=== PATIENT | female | born 1955 | race African-American/Black ===

== ENCOUNTER 2016-09-13 10:30 | Outpatient (RCR) | payer OTHER | END 2016-10-25 08:15 | disposition still patient (30) | LOC: WSOT 10:30 | DX: M77.11 Lateral epicondylitis, right elbow (principal) ==

== ENCOUNTER → 2017-06-19 | Outpatient (CLI) | payer OTHER | LOC: MC.RAD 08:40 | DX: Z12.31 Encounter for screening mammogram for malignant neoplasm of breast (principal) ==

== ENCOUNTER → 2018-06-20 | Outpatient (CLI) | payer BC ==
[~2018-06-20] MED LIST: ACTIVELLA TABLE1 TAB PO; LOPREEZA1 TAB PO; PROTONIX 40MG T40 MG PO
== END ==
LOC: MC.RAD 12:50
DX: Z12.31 Encounter for screening mammogram for malignant neoplasm of breast (principal)

== ENCOUNTER 2019-02-27 09:44 | Observation (INO) | payer MEDICARE, OTHER ==
[~2019-02-27] VITALS: Ht 170.2 cm; Wt 66.5 kg
[2019-02-27] MEDS ORDERED: ESTRACE 1MG1 MG/TAB PO (10:01)
[2019-02-27] MEDS ORDERED: MOBIC15 MG PO (10:02)
[2019-02-27 10:35] LABS: BASO % 0.3 % (0.0-2.0); EOS # 0.2 (0.0-0.7); EOS % 1.4 % (0-4.0); GRAN # 8.4 (1.4-6.5); GRAN % 79.2 % (42.2-75.2); HEMATOCRIT 41.8 % (37.0-47.0); HEMOGLOBIN 13.1 g/dl (12.5-16.0); LYMPH # 1.2 (1.2-3.4); LYMPH % 11.7 % (20.0-51.0); MEAN CELL VOLUME 78 fl (80.0-100.0); MEAN CORPUSCULAR HEMOGLOBIN 25 pg (27.0-31.0); MEAN CORPUSCULAR HGB CONC 31 g/dl (33.0-37.0); MEAN PLATELET VOLUME 10.1 fl (7.4-10.4); MONO # 0.8 (0.1-0.6); MONO % 7.1 % (1.7-9.3); PLATELET COUNT 230 K/mm3 (130-400); RED BLOOD COUNT 5.33 M/mm3 (4.10-5.30); REDCELL DISTRIBUTION WIDTH-CV 13.7 % (11.5-14.5)
[2019-02-27 10:45] LABS: ALBUMIN 4.5 gm/dL (3.5-5.0); BILIRUBIN,TOTAL 2.1 mg/dL (0.0-1.0); CALCIUM 10.1 mg/dL (8.4-10.2); CREATININE, serum 0.93 (0.52-1.25); POTASSIUM 3.9 mmol/L (3.4-5.0); TOTAL PROTEIN 8.1 gm/dL (6.4-8.2)
[2019-02-27 10:51] LABS: COLLECTION METHOD CLEAN CATCH
[2019-02-27 11:04] LABS: MUCOUS Present /lpf; PH 5 (5-8); URINE APPEARANCE Hazy; URINE BACTERIA Rare /hpf; URINE BILIRUBIN Negative (NEGATIVE); URINE BLOOD 2+ (NEGATIVE); URINE COLOR Yellow; URINE GLUCOSE Negative (NEGATIVE); URINE KETONE Trace (NEGATIVE); URINE LEUKOCYTE ESTERASE Negative (NEGATIVE); URINE NITRATE Negative (NEGATIVE); URINE PROTEIN(semi-quant) 1+ (NEGATIVE); URINE UROBILINOGEN Negative (NEGATIVE)
--- NOTE | 2019-02-27 13:38 | NUR ---
RECEIVED REPORT FROM YEN MEDRANO FROM THE ED.PATIENT TO BE TRANSPORTED TO ROOM 308.
--- NOTE | 2019-02-27 13:57 | NUR ---
pt arrived to room 308 at this time.awake,a/ox3.oriented to room.denies any needs at this time.will continue to monitor.call light in reach
[2019-02-27 14:07] VITALS: BP 147/71; PULSE 62; TEMP 98.1
--- NOTE | 2019-02-27 15:00 | NUR ---
ASSESSMENT COMPLETE.PATIENT A/OX3.REPORTS MINIMAL TO NO PAIN TO ABD.DESCRIBES CRAMPING.BREATHING EVEN AND UNLABORED.LSCTA.BREATHING EVEN AND UNLABORED.INSTRUMENTATION AND CONTROL TECHNICIAN EQUAL.PT AMBULATORY.DENIES ANY BRIGHT RED BLOOD AT THIS TIME.NO OTHER NEEDS VOICED.WILL CONTINUE TO MONITOR.CALL LIGHT IN REACH
[2019-02-27 16:21] LABS: HEMATOCRIT 37.9 % (37.0-47.0); HEMOGLOBIN 11.9 g/dl (12.5-16.0)
[2019-02-27 16:24] VITALS: BP 165/72; PULSE 66; TEMP 98.7
--- NOTE | 2019-02-27 17:54 | NUR ---
PT REPORTS ONE EPISODE OF BLOODY STOOL.THIS RN ASSESED IT,BRIGHT RED BLOOD NOTED TO BOWEL MOVEMENT.PATIENT REPORTS CRAMPING.GI CONSULT CALLED WHILE PATIENT WAS IN ED.DIET ADVANCED TO CLEAR LIQUIDS.WILL CONTINUE TO MONITOR.
--- NOTE | 2019-02-27 19:12 | NUR ---
REPORT GIVEN TO YEN ESCOBAR.
--- NOTE | 2019-02-27 20:00 | NUR ---
Patient resting in bed with at bedside. Patient is alert and oriented. No complaints of pain. Assessment complete. Assessment reveals clear lungs, active bowel sounds x4, and regular HR and rhythm with normal S1 and S2. Spoke with patient about possibilities of a egd or colonoscopy tomorrow. Discussed the procedures and what to expect. Patient confirmed understanding. Has no further questions at this time. No other needs currently. Will continue to monitor. Call light within reach.
[2019-02-27 20:26] VITALS: BP 129/56; PULSE 73; TEMP 98.5
[2019-02-27 23:26] VITALS: BP 135/76; PULSE 57; TEMP 98.2
--- NOTE | 2019-02-28 | NUR ---
Patient asleep at this time. Awakens easily to name. No complaints of pain, is just tired. Vitals have remained stable. No further needs. Will continue to monitor. Call light within reach.
[2019-02-28 03:46] VITALS: BP 129/76; PULSE 66; TEMP 98
--- NOTE | 2019-02-28 04:00 | NUR ---
Patient asleep in bed at this time. No signs of pain or distress. Vitals are stable. Will continue to monitor. Call light within reach.
[2019-02-28 07:17] LABS: BASO % 0.4 % (0.0-2.0); EOS # 0.3 (0.0-0.7); EOS % 3.8 % (0-4.0); GRAN # 4.5 (1.4-6.5); GRAN % 61.5 % (42.2-75.2); HEMOGLOBIN 11.1 g/dl (12.5-16.0); LYMPH # 1.7 (1.2-3.4); LYMPH % 23.3 % (20.0-51.0); MEAN CELL VOLUME 81 fl (80.0-100.0); MEAN CORPUSCULAR HEMOGLOBIN 24 pg (27.0-31.0); MEAN CORPUSCULAR HGB CONC 30 g/dl (33.0-37.0); MEAN PLATELET VOLUME 10.9 fl (7.4-10.4); MONO # 0.8 (0.1-0.6); MONO % 10.7 % (1.7-9.3); PLATELET COUNT 215 K/mm3 (130-400); RED BLOOD COUNT 4.55 M/mm3 (4.10-5.30); REDCELL DISTRIBUTION WIDTH-CV 13.8 % (11.5-14.5)
--- NOTE | 2019-02-28 07:18 | NUR ---
Bedside report given to YEN Cummings
[2019-02-28 07:24] LABS: HEMATOCRIT 36.7 % (37.0-47.0)
[2019-02-28 07:33] LABS: ALBUMIN 3.3 gm/dL (3.5-5.0); BILIRUBIN,TOTAL 1.4 mg/dL (0.0-1.0); CALCIUM 8.8 mg/dL (8.4-10.2); CREATININE, serum 0.72 (0.52-1.25); POTASSIUM 3.8 mmol/L (3.4-5.0); TOTAL PROTEIN 6.2 gm/dL (6.4-8.2)
[2019-02-28 07:37] VITALS: BP 129/74; PULSE 68; TEMP 98.3
--- NOTE | 2019-02-28 10:05 | NUR ---
Initial visit; Patient thanked [employer] for looking in on her and offering God's blessings.
--- NOTE | 2019-02-28 10:57 | NUR ---
SW attended clinical rounds. Patient lives independently at home with her and plans to return there upon discharge. Doctor reports patient could possibly discharge later today. Patient's PCP is Dr Gonzalez and she obtains prescriptions from [facility]. Patient is independent with ADLs. No reported DME or home health. SW does not anticipate any discharge needs.
[2019-02-28 11:29] VITALS: BP 122/64; PULSE 62; TEMP 98.4
--- NOTE | 2019-02-28 16:35 | NUR ---
Patient discharge instructions and education reviewed with patient. Patient verbalizes understanding. LAC IV discontinued, catheter tip intact, no complications. Patient assisted out by Brandy. All questions answered.
== END 2019-02-28 16:37 | disposition home or self-care (01) ==
LOC: COL.ER 09:44 → MEDICAL 12:26
PROVIDERS: Emergency Medicine; Physician Assistant; ADMIT Hospitalist
DX: K52.9 Noninfective gastroenteritis and colitis, unspecified (principal); K62.5 Hemorrhage of anus and rectum; E80.6 Other disorders of bilirubin metabolism; R80.9 Proteinuria, unspecified; R61 Generalized hyperhidrosis; I10 Essential (primary) hypertension; I31.3 Pericardial effusion (noninflammatory); K21.9 Gastro-esophageal reflux disease without esophagitis; Z90.49 Acquired absence of other specified parts of digestive tract; Z80.1 Family history of malignant neoplasm of trachea, bronchus and lung; Z82.5 Family history of asthma and other chronic lower respiratory diseases; Z83.3 Family history of diabetes mellitus; Z81.8 Family history of other mental and behavioral disorders; Z88.6 Allergy status to analgesic agent
CPT/HCPCS: G0378; J7030; Q9967

== ENCOUNTER → 2019-03-12 | Outpatient (CLI) | payer MEDICARE, OTHER ==
[~2019-03-12] MED LIST changes: +ESTRACE 1MG1 MG/TAB PO; +MOBIC15 MG PO
== END ==
LOC: COL.RAD 14:52
DX: K55.9 Vascular disorder of intestine, unspecified (principal)
CPT/HCPCS: Q9967

== ENCOUNTER → 2019-06-24 | Outpatient (CLI) | payer MEDICARE, OTHER | LOC: MC.RAD 09:41 | DX: Z12.31 Encounter for screening mammogram for malignant neoplasm of breast (principal) ==

== ENCOUNTER → 2020-06-29 | Outpatient (CLI) | payer MEDICARE, OTHER | LOC: MC.RAD 09:20 | DX: Z12.31 Encounter for screening mammogram for malignant neoplasm of breast (principal) ==

== ENCOUNTER → 2021-07-06 | Outpatient (CLI) | payer MEDICARE, OTHER | LOC: MC.RAD 11:05 | DX: Z12.31 Encounter for screening mammogram for malignant neoplasm of breast (principal) ==

== ENCOUNTER → 2023-08-11 | Outpatient (CLI) | payer MEDICARE, OTHER | LOC: CANSCHCLI → MC.RAD 09:44 | DX: Z12.31 Encounter for screening mammogram for malignant neoplasm of breast (principal) ==